=== PATIENT | female | born 1965 | race Caucasian/White ===

== ENCOUNTER 2017-02-20 21:21 | Emergency (ER) | payer OTHER ==
[~2017-02-20] VITALS: Ht 162.6 cm; Wt 68.0 kg
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
--- NOTE | 2017-02-21 02:04 | NUR ---
marybeth richardson (family member) [phone]
[2017-02-21] MEDS ORDERED: ACETAMINOPHEN ES 500 MG TABLET ONE (02:20)
[2017-02-21] MEDS: ACETAMINOPHEN 325 MG TABLET PO ONE (02:22)
--- NOTE | 2017-02-21 03:46 | NUR ---
Patient discharged to home in stable condition. Written and verbal after care instructions given. Patient verbalizes understanding of instruction. Patient is ambulatory with steady gait and she said she will be picked up by his friend. no further complaints. nad on dc. vss.
[2017-02-21 03:47] VITALS: BP 128/74
== END 2017-02-21 03:48 | disposition home or self-care (01) ==
LOC: ER 21:23
DX: S50.11XA Contusion of right forearm, initial encounter (principal); S80.01XA Contusion of right knee, initial encounter; S70.01XA Contusion of right hip, initial encounter; F10.10 Alcohol abuse, uncomplicated; Y08.89XA Assault by other specified means, initial encounter; Y93.89 Activity, other specified; Y92.89 Other specified places as the place of occurrence of the external cause; Y99.8 Other external cause status
CPT/HCPCS: 99283; A4606; Z7610